=== PATIENT | female | born 1940 | race Caucasian/White ===

== ENCOUNTER 2017-08-15 07:09 | Observation (INO) | payer MEDICARE ==
[2017-08-14 15:21] LABS: BASOPHILS % 0.3 % (0.0-1.0); EOSINOPHILS # (AUTO) 0.1 (0.0-0.4); EOSINOPHILS % 0.9 % (0.0-6.0); HEMATOCRIT 41.2 % (34.2-44.1); HEMOGLOBIN 13.2 g/dL (12.0-16.0); LYMPHOCYTES # (AUTO) 1.9 (1.0-3.2); MEAN CORPUSCULAR HEMOGLOBIN 30.3 pg (28-32); MEAN CORPUSCULAR VOLUME 94.5 fL (81-99); MONOCYTES # (AUTO) 0.7 (0.2-0.8); MONOCYTES % 7.1 % (4.4-11.3); NEUTROPHILS # (AUTO) 7.3 (2.1-6.9); NEUTROPHILS % 72.3 % (38.7-80.0); PLATELET COUNT 211 x10e3/uL (140-360); RED BLOOD COUNT 4.36 x10e6/uL (3.6-5.1); RED CELL DISTRIBUTION WIDTH 13.9 % (11.7-14.4)
--- NOTE | 2017-08-14 15:31 | Diagnostic Imaging Report ---
PROCEDURE: Frontal and lateral views of the chest. COMPARISON: None. INDICATIONS: PREOPERATIVE CHEST XRAY FOR LUMBAR SPINE SURGERY FINDINGS: Lines/tubes: None. Lungs: The lungs are well inflated and clear. There is no evidence of pneumonia or pulmonary edema. Pleura: There is no pleural effusion or pneumothorax. Heart and mediastinum: The heart and the mediastinum are normal. Bones: No acute bony abnormality. Right shoulder arthroplasty. Upper abdomen: Numerous surgical clips in the left upper quadrant. IMPRESSION: No acute cardiopulmonary disease. Dictated by: Antonio العراقي M.D. on 08/14/2017 at 15:35 Electronically approved by: Antonio العراقي M.D. on 08/14/2017 at 15:35
[2017-08-14 15:33] LABS: INR 1.09; PROTHROMBIN TIME 13.3 seconds (11.9-14.5)
[2017-08-14 15:34] LABS: PARTIAL THROMBOPLASTIN TIME 24.9 seconds (23.8-35.5)
[2017-08-14 15:38] LABS: ANION GAP 14.1 mmol/L (8-16); CALCIUM 9.2 mg/dL (8.4-10.2); CREATININE, SERUM 1.26 mg/dL (0.57-1.11); POTASSIUM 5.1 mmol/L (3.5-5.1)
[~2017-08-15] VITALS: Ht 162.6 cm; Wt 124.7 kg
[~2017-08-15 07:09] MED LIST: ADACEL IM; ALBUTEROL SULFATE INH; ALLOPURINOL100 MG PO; ASPIR 8181 MG PO; ATORVASTATIN CA20 MG PO; BACITRACIN 50,000 UNIT VIAL ONE; BENADRYL25 M1 PO; BROVANA15 MCG/2 M INH; BUPROPION HCL150 M2 PO; BUTALB-ACETAMI1 EACH PO; CAL-CITRATE PL1 EACH PO; CLOTRIMAZOLE15 GM TOP; CYMBALTA30 MG PO; GELATIN SPONGE 12-7MM ONE; IRON PO; LANTUS 3ML100 UNITS/ SQ; LIDOCAINE 1% W/EPINEPHRINE 20 ML VIAL ONE; LIDOCAINE HCL (LTA) 4 ML SOLN ONE; MULTI-VITAMIN1 EACH PO; NOVOLOG SQ; PERCOCET 10-321 EACH PO; PROPRANOLOL HCL80 MG PO; SHINGRIX IM; SUMATRIPTAN SUC25 MG PO; THROMBIN FOR SOLN 5,000 UNIT VIAL ONE; VENTOLIN HFA18 GM INH; VITAMIN D PO
[2017-08-15] MEDS ORDERED: VITAMIN B-121000 MCG PO (07:47)
[2017-08-15] MEDS ORDERED: CEFAZOLIN SOD 1 GM VIAL ONE ×2 (08:09→18:32)
[2017-08-15] MEDS ORDERED: PROMETHAZINE HCL (IM) 25 MG/ML VIAL IM PRN (12:30)
[2017-08-15] MEDS ORDERED: MAGNESIUM/ALUMINUM/SIMETHICONE 30 ML UDC PO PRN (12:30)
[2017-08-15] MEDS ORDERED: HYDROMORPHONE 2MG/ML INJ IV PRN (12:30)
[2017-08-15] MEDS ORDERED: CLOTRIMAZOLE 1% CR 15 GM TOP PRN (12:30)
[2017-08-15] MEDS ORDERED: CARISOPRODOL 350 MG TAB PO PRN (12:30)
[2017-08-15] MEDS ORDERED: CEPACOL SORE THROAT LOZENGES PO PRN (12:30)
[2017-08-15] MEDS ORDERED: SUMATRIPTAN SUCCINATE 25 MG TAB PO PRN (12:30)
[2017-08-15] MEDS ORDERED: OXYCODONE/ACETAMINOPHEN 5-325 1 EACH TABLET PO PRN (12:30)
[2017-08-15] MEDS ORDERED: ALBUTEROL SULFATE HFA 8GM INHALATION AEROSOL INH PRN (12:30)
[2017-08-15] MEDS ORDERED: DIPHENHYDRAMINE HCL 25 MG CAP PO PRN (12:30)
[2017-08-15] MEDS ORDERED: ACETAMIN/BUTALBITAL/CAFFEINE TAB PO PRN (12:30)
[2017-08-15] MEDS ORDERED: ONDANSETRON HCL INJ 2 MG/ML VIAL IV PRN (12:30)
[2017-08-15] MEDS ORDERED: ACETAMINOPHEN 325 MG TAB PO PRN (12:30)
[2017-08-15] MEDS ORDERED: HYDROMORPHONE 1MG/1ML INJ IV PRN (13:00)
[2017-08-15 13:58] VITALS: BP 145/81
--- NOTE | 2017-08-15 14:12 | Operative Report ---
DATE OF PROCEDURE: August 15, 2017 PREOPERATIVE DIAGNOSIS: C6-7 disk herniation and spondylosis with radiculopathy, M50.123. POSTOPERATIVE DIAGNOSIS: C6-7 disk herniation and spondylosis with radiculopathy, M50.123. PROCEDURES: 1. C6-7 anterior cervical diskectomy and microsurgical osteophyte resection and allograft fusion, 55932. 2. Preparation of [employer] cortical cancellous allograft, 15765. 3. C6-7 anterior cervical plating with Synthes Zero-Profile Natural plate, 87427. ANESTHESIA: General. INDICATIONS: The patient is an obese woman with a C6-7 disk herniation and spondylosis with cervical radiculopathy. She was taken to the operating room for anterior cervical decompression and fusion. PROCEDURE: After the induction of general anesthesia, the patient was placed on the operating table in supine position. The right side of the neck was prepped and draped in sterile fashion. The fluoroscopic C-arm was positioned in cross-table lateral orientation. A transverse incision was created on the right side of the neck, superimposed on the C6-7 disk space. The platysma was divided in line with the incision. A subplatysmal dissection was carried out. An avascular plane of dissection was developed medial to the sternocleidomastoid muscle and was followed medial to the carotid sheath to the anterior border of the cervical spine. The deep cervical fascia was opened, and the esophagus was retracted to the left. Because of the patient's body habitus, it was not possible to see the C6-7 disk space on lateral fluoroscopy. Instead a counting was performed from C3-4 segments down to the C6-7 segment. The anterior annulus of the disk and the large anterior osteophyte were resected. Enfield posts were inserted into C6 and C7. The Enfield distractor was used to distract the disk space. The contents of the C6-7 disk were thoroughly evacuated with angled curets and pituitary rongeurs. The posterior osteophytes were meticulously drilled with a 2 mm cutting bur on a high-speed drill until they were completely removed. A large osteophyte in the center and right paracentral location was carefully elevated with an up-angled curet and resected. Excellent decompression of the dura was achieved. The medial aspects of the uncinate processes were resected bilaterally to further expose and decompress the origins of the corresponding nerve roots. After satisfactory decompression had been achieved, the endplates were prepared for fusion. The disk space was sized and found to be 7 mm in height. A piece of MTF cortical cancellous allograft measuring 7 mm in thickness was selected and prepared in saline and loaded onto a Synthes ZPN plate. The construct was inserted into the C6-7 disk space under distraction and fluoroscopic guidance. The distraction was released, and the distraction posts were removed. The plate was screwed to the endplates of C6 and C7 with 2 pairs of 16 mm screws. All screws were locked. An excellent construct was obtained. The wound was copiously irrigated with Bacitracin solution. Meticulous hemostasis was secured. The retractor was removed. The platysma was closed with 3-0 Vicryl sutures. The skin was closed with 4-0 Monocryl sutures in subcuticular fashion. Steri-Strips and a dressing were applied. The patient was awakened, extubated and taken to the postanesthesia care unit in stable condition. No intraoperative complications were encountered. Estimated blood loss was 10 mL. Job#: [id number] YESSICA
[2017-08-15 15:19] VITALS: BP 148/69
[2017-08-15] MEDS: LACTATED RINGER'S 1,000 ML IV SCH ×2 (16:00→20:37)
[2017-08-15] MEDS: BUPROPION HCL SR 150 MG TAB PO SCH (16:17)
[2017-08-15] MEDS: DULOXETINE HCL 30 MG DELAYED RELEASE PO SCH (16:17)
[2017-08-15] MEDS ORDERED: MIDAZOLAM HCL 2 MG/2 ML VIAL ONE (16:45)
[2017-08-15] MEDS ORDERED: FENTANYL CITRATE/PF 100MCG/2 ML INJ ONE (16:45)
[2017-08-15] MEDS: CEFAZOLIN SOD 1 GM/NS 50ML 50 ML IV SCH (17:01)
[2017-08-15] MEDS ORDERED: ACETAMINOPHEN 1000 MG/100 ML IV ONE (18:32)
[2017-08-15] MEDS ORDERED: GLYCOPYRROLATE INJ 1MG/ 5 ML SYR ONE (18:32)
[2017-08-15] MEDS ORDERED: SEVOFLURANE INHAL SOLN 250 ML PEN BTL ONE (18:32)
[2017-08-15] MEDS ORDERED: NEOSTIGMINE 5 MG/5ML SYR ONE (18:32)
[2017-08-15] MEDS ORDERED: LIDOCAINE HCL 2% JELLY 5 ML TUBE ONE (18:32)
[2017-08-15] MEDS ORDERED: DEXAMETHASONE SOD PHOS INJ 4 MG/ML VIAL ONE (18:32)
[2017-08-15] MEDS ORDERED: SUCCINYLCHOLINE 200 MG/10 ML SYR ONE (18:32)
[2017-08-15] MEDS ORDERED: LIDOCAINE HCL 2% LOCAL INJ 5 ML SDV VIAL INJ ONE (18:32)
[2017-08-15] MEDS ORDERED: PROPOFOL IV EMULSION 10 MG/ML 20 ML VIAL ONE (18:32)
[2017-08-15] MEDS ORDERED: ONDANSETRON HCL INJ 2 MG/ML VIAL ONE (18:32)
[2017-08-15] MEDS ORDERED: ROCURONIUM BROMIDE 10 MG/ML 5ML VIAL ONE (18:32)
[2017-08-15 20:00] VITALS: BP 109/79
[2017-08-15] MEDS ORDERED: INSULIN DETEMIR 100 UNIT/ML PEN SQ SCH (21:00)
[2017-08-15] MEDS ORDERED: ATORVASTATIN 20 MG TAB PO SCH (21:00)
[2017-08-15] MEDS ORDERED: ATORVASTATIN 40 MG TAB PO SCH (21:00)
[2017-08-15] MEDS ORDERED: ZOLPIDEM TARTRATE 5 MG TAB PO PRN (21:00)
[2017-08-15 23:04] VITALS: BP 109/79
[2017-08-15 23:06] VITALS: BP 109/79
[2017-08-16 00:30] VITALS: BP 146/64
[2017-08-16] MEDS: CEFAZOLIN SOD 1 GM/NS 50ML 50 ML IV SCH ×2 (01:24→10:06)
[2017-08-16 04:20] VITALS: BP 144/69
[2017-08-16] MEDS: LACTATED RINGER'S 1,000 ML IV SCH (04:57)
--- NOTE | 2017-08-16 06:56 | Diagnostic Imaging Report ---
C-SPINE 2 VIEWS AP LATERAL HISTORY: Cervical spine fusion/surgery COMPARISON: None FINDINGS: Bones: No displaced fracture. Osseous alignment is within normal limits. Joints: Severe degenerative changes of the lower cervical spine involving the intervertebral disc and uncovertebral joints from C4-5 through C7-T1 status post anterior fusion at C6-7 Soft tissues: Precervical spine soft tissue edema and right neck subcutaneous emphysema IMPRESSION: No acute radiographic abnormality. Postsurgical changes related to C6-7 surgical fusion Signed by: Dr. Oren Powers M.D. on 08/16/2017 6:52 AM
[2017-08-16 08:00] VITALS: BP 157/77
[2017-08-16] MEDS: BUPROPION HCL SR 150 MG TAB PO SCH (08:58)
[2017-08-16] MEDS: DULOXETINE HCL 30 MG DELAYED RELEASE PO SCH (08:58)
[2017-08-16] MEDS ORDERED: FERROUS SULFATE 325 MG TAB PO SCH (09:00)
[2017-08-16] MEDS ORDERED: CYANOCOBALAMIN 1,000 MCG TAB PO SCH (09:00)
[2017-08-16] MEDS ORDERED: ALLOPURINOL 100 MG TAB PO SCH (09:00)
[2017-08-16] MEDS ORDERED: PROPRANOLOL HCL 80 MG CAPCR PO SCH (09:00)
[2017-08-16] MEDS ORDERED: IRON 325 MG PO SCH (09:00)
[2017-08-16] MEDS ORDERED: NORCO 7.5-3251 EACH PO (10:14)
--- NOTE | 2017-08-16 15:32 | Consultation ---
DATE OF CONSULTATION: August 15, 2017 PULMONARY MEDICINE CONSULT REFERRING PHYSICIAN: Dr. Patrick REASON FOR REFERRAL: Postoperative state. HISTORY: Ms. Melendrez is a pleasant 77-year-old female with postoperative state. Patient with baseline headaches. She also has left much greater than right weakness, as well as a small amount of associated pain. She is able to walk with a walker. She can go about 1.5 blocks distance. As these symptoms were evolving over the last year and a half, she has undergone a neurologic workup. Findings included C6-C7 disk herniation, spondylosis with radiculopathy. Patient today underwent C6 and C7 anterior cervical diskectomy and anterior cervical plating. Estimated blood loss was 10 mL. There was no complication noted. Patient with reportedly advanced-stage plus late-stage COPD per history. She is on 2 L per minute by nasal cannula at home. She is obese. She has some kyphotic configuration of her C-spine that was noted. She, recently, was given prednisone and she stopped in 2 days ago. She has been tested multiple times for obstructive sleep apnea including twice last year and there was no obstructive sleep apnea. Her home medications include nebulizer treatments, which she uses twice daily. She is not on any allergy medicines, noting she has some allergies. She is on Ventolin p.r.n. 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 MEDICATIONS: Medication list reviewed per electronic record. ALLERGIES: MORPHINE CAUSES ITCHINESS. SOCIAL HISTORY: Patient smoked from age 13 to 30, 3.5 packs per day. Heavy alcohol for 10 years' duration, but quit 14 years ago. No drugs. 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 She is from [place], but moved to [place] 2 years ago as her health was deteriorating. She lives with her daughter right now. FAMILY HISTORY: Noncontributory. REVIEW OF SYSTEMS GENERAL: No unintentional weight changes. However, she lost 50 lbs in last 2 years. HEENT: No dry mouth. ENT: No thyroid disease. CARDIAC: No heart attacks. PULMONARY: No hemoptysis. : No blood in urine. GI: Denies constipation. DERMATOLOGIC: No rash. NEUROLOGIC: No seizures. MUSCULOSKELETAL: There is some arthritis. OBJECTIVE VITAL SIGNS: Afebrile, vital signs noted per electronic record. GENERAL: In no acute distress, alert and calm. HEENT: Normocephalic, atraumatic. NECK: With collar on that is soft. Some pain. However, no high-grade airway blockage perceived. LUNGS: Bilateral air entry is mild to moderate, definitely decreased. No wheezes, no crackles, no rhonchi. CARDIOVASCULAR: S1, S2. No murmurs, rubs or gallops. ABDOMEN: Soft, obese. EXTREMITIES: No clubbing, no cyanosis. There is really no edema or trace edema. INTEGUMENT: No rash, no purpura. LABS: Recent labs reviewed per electronic record. Creatinine is 1.2. Chest x-ray recently with clear lungs although spine with low bone marrow density and some kyphotic configuration. IMPRESSIONS AND PLAN 1. Postoperative state, status post C6-C7 anterior cervical diskectomy and fusion and osteophyte resection. 2. C6-C7 disk herniation and radiculopathy. 3. Chronic obstructive pulmonary disease. 4. Obesity. 5. Chronic hypoxemia. 6. Allergies. 7. Suspect cervical spine kyphosis or other. 8. No obstructive sleep apnea per multiple testings. 9. Chronic kidney disease. 10. Hyperlipidemia. 11. Diabetes. 12. History of breast cancer 20 years ago. 13. Former smoker. 14. Baseline debility/weakness. Continue serial evaluation. Patient received steroids, stopped 2 years ago and no further boost right now as she is doing fine. Continue diet with aspiration cautions. Patient will continue oxygen supplement. Continue serial airway evaluations, as well as neuro evaluation for short term. We will continue follow up closely while she is here. So far, there is excellent progress after the surgery. Thank you very much, Dr. Patrick, for allowing me the chance to participate in the care of Ms. Melendrez. Do not hesitate to contact me if I can help in any way. Job#: [id number] CQ
== END 2017-08-16 10:48 | disposition home or self-care (01) ==
LOC: OR 07:09 → PACU V 12:22 → IMCU 13:08
PROVIDERS: ADMIT Neurological Surgery; ATTEND Neurological Surgery
DX: M50.123 Cervical disc disorder at C6-C7 level with radiculopathy (principal); J44.9 Chronic obstructive pulmonary disease, unspecified; E78.5 Hyperlipidemia, unspecified; E66.9 Obesity, unspecified; Z85.3 Personal history of malignant neoplasm of breast; Z88.5 Allergy status to narcotic agent; K21.9 Gastro-esophageal reflux disease without esophagitis; R09.02 Hypoxemia; R53.81 Other malaise; Z87.891 Personal history of nicotine dependence; E11.22 Type 2 diabetes mellitus with diabetic chronic kidney disease; I12.9 Hypertensive chronic kidney disease with stage 1 through stage 4 chronic kidney disease, or unspecified chronic kidney disease; N18.9 Chronic kidney disease, unspecified; Z68.42 Body mass index [BMI] 45.0-49.9, adult
CPT/HCPCS: 36415; 71046; 72040; 77003; 80048; 82948; 85025; 85610; 85730; 86850; 86900; 88304; 93005; C1713; C9359; G0378; J0690; J1100; J1170; J2001; J2250; J2405; J7120